=== PATIENT | male | born 1950 | race African-American/Black ===

== ENCOUNTER → 2019-09-28 | Outpatient (CLI) | payer OTHER ==
[~2019-09-28] VITALS: Ht 182.9 cm; Wt 117.9 kg
[~2019-09-28] MED LIST: ACETAMINOPHEN325 M1 PO; ADULT LOW DOSE81 MG PO; ALBUTEROL INH INH; ALDACTONE25 MG PO; ALLEGRA ALLERG180 MG PO; APAP650 RECTAL; AVALIDE 300-121 EACH PO; AVAPRO300 MG PO; CENTRUM SILVER1 EAC4 PO; CO Q-10300 MG PO; COUMADIN 1MG TAB1 M1 PO; CVS GLUCOSAMIN PO; DEMADEX20 MG PO; ENOXAPARIN30 MG/0.3 SUBQ; FLEXERIL PO; FOLBIC RF TABL1 EACH PO; GLUCOSAMINE &1 EAC1 PO; HYDROCHLOROTHIA25 M2 PO; HYDROCODON-ACE1 EAC5 PO; JANTOVEN7.5 MG PO; KLOR-CON20 ME1 PO; MULTIVITAMINS PO; NIASPAN 500 MG500 M1 PO; PACERONE 200 M200 M1 PO; PERCOCET 5-3251 EACH PO; POTASSIUM20 PO; PULMICORT FLE180 MCG INH; SINGULAIR 10 MG10 MG PO; SPIRIVA INH; SYMBICORT160 MCG/4. INH; TAMSULOSIN HCL0.4 MG PO; TOPROL XL25 MG PO; VERAPAMIL ER240 M1 PO; XARELTO10 M1 PO; XARELTO20 MG PO
[2019-09-28 07:59] VITALS: BP 134/86
[2019-09-28 09:15] VITALS: BP 148/95
[2019-09-28 09:45] VITALS: BP 123/89
[2019-09-28 09:56] VITALS: BP 137/86
--- NOTE | 2019-09-28 09:57 | TEE ---
[facility] [place] [address] TRANSESOPHAGEAL ECHOCARDIOGRAM Name: AASHISH OSMAN Room #: REG CAYETANO Narayan#: [id number] Admission: 09/28/19 Attend Phys: Efrain Painter MD, Discharge: Date of : 48 Report #: [id number] THIS REPORT FOR: cc: Christiana Coleman MD, Karla L. MD Lundgren,Efrain Ashton MD [facility] ~ APPROVED REPORT Study performed: 09/28/2019 08:44:11 EXAM: Transesophageal Echocardiogram with Doppler Patient Location: Out-Patient Room #: [facility] Status: routine BSA: 2.38 HR: 100 bpm BP: 129/90 mmHg Rhythm: Atrial Fibrillation Other Information Study Quality: Good Indications Atrial Fibrillation Echo Enhancing Agent Indication: Rule out Shunt Agent(s) / Amount(s) Used: Agitated Saline 7 cc Procedure After obtaining informed consent, patient underwent transesophageal echo in the [employer]. Type of Sedation : Conscious Sedation Sedation was achieved intravenously with: Versed (3 mg) Fentanyl (100 mcg) Transesophageal probe was inserted and advanced into esophagus without difficulty by Efrain Painter MD. Echo enhancement indication: R/O Septal defect. Echo enhancement agent administered: Agitated Saline The ODALIS was performed without complications. Throughout the procedure, the blood pressure, pulse oximetry, cardiac rhythm, and rate were monitored. The patient tolerated the procedure without adverse effects. Recovery from conscious sedation was uneventful and vital signs were [facility] [address] [place] [address] TRANSESOPHAGEAL ECHOCARDIOGRAM Name: AASHISH OSMAN Room #: REG [facility]#: [id number] Admission: 09/28/19 Attend Phys: Efrain Painter, Discharge: Date of : 48 Report #: [id number]. Left Ventricle The left ventricle is normal size. There is normal LV segmental wall motion. There is normal left ventricular wall thickness. The left ventricular systolic function is normal. The left ventricular ejection fraction is within the normal range. LVEF is 55-60%. Right Ventricle The right ventricle is normal size. The right ventricular systolic function is normal. Atria Left atrium is dilated. No thrombus is visualized in the left atrium or appendage. Small amount of [id number] shunting consistent with patent foramen ovale. Right atrium is dilated. Aortic Valve The aortic valve is normal in structure. No aortic regurgitation is present. There is no aortic valvular stenosis. Mitral Valve The mitral valve is normal in structure. Mild mitral regurgitation. No evidence of mitral valve stenosis. Tricuspid Valve The tricuspid valve is normal in structure. Mild tricuspid regurgitation. Pulmonic Valve The pulmonary valve is normal in structure. There is no pulmonic valvular regurgitation. Great Vessels The aortic root is normal in size. The ascending aorta is normal in size. Mild atherosclerotic plaquing IVC is normal in size and collapses >50% with inspiration. Pericardium There is no pericardial effusion. <Conclusion> The left ventricular systolic function is normal. There is normal LV segmental wall motion. LVEF is 55-60%. Both atria are dilated. No thrombus is visualized in the left atrium [facility] [address] [place] [address] TRANSESOPHAGEAL ECHOCARDIOGRAM Name: JACQUIAASHISH Room #: REG CL [facility]#: [id number] Admission: 09/28/19 Attend Phys: Efrain Painter, Discharge: Date of : 48 Report #: [id number] or appendage. Small amount of gwlae-bh-aawc shunting consistent with patent foramen ovale. The aortic valve is normal in structure. No aortic regurgitation or stenosis. The mitral valve is normal in structure. Mild mitral regurgitation. There is no pericardial effusion. <ELECTRONICALLY SIGNED> By: Efrain Painter MD, [facility] 09/28/1957 5 5 Efrain Painter MD, [facility] /INF
== END | disposition home or self-care (01) ==
LOC: CATH 06:24
DX: I48.91 Unspecified atrial fibrillation (principal); I34.9 Nonrheumatic mitral valve disorder, unspecified; I10 Essential (primary) hypertension; J45.909 Unspecified asthma, uncomplicated; G47.30 Sleep apnea, unspecified; Z98.890 Other specified postprocedural states; Z79.899 Other long term (current) drug therapy; Z79.01 Long term (current) use of anticoagulants; Z87.891 Personal history of nicotine dependence; Z88.8 Allergy status to other drugs, medicaments and biological substances

== ENCOUNTER → 2019-10-09 | Outpatient (CLI) | payer OTHER ==
[2019-10-09 08:24] LABS: HEMOGLOBIN 15.8 gm/dL (14.0-18.0); MCH 25.3 pg (26.0-34.0); MCHC 31.6 g/dL (28.0-37.0); MCV 79.9 fL (80.0-100.0); RBC 6.25 mil/uL (4.50-6.00); WBC 8.6 thou/uL (4.0-11.0)
[2019-10-09 08:41] LABS: ALBUMIN 3.3 g/dL (3.4-5.0); CALCIUM 8.8 mg/dL (8.5-10.1); POTASSIUM 4.2 mmol/L (3.5-5.1); TOTAL PROTEIN 7.1 g/dL (6.4-8.2)
== END ==
LOC: CAT 07:50
PROVIDERS: Internal Medicine Cardiovascular Disease
DX: I48.91 Unspecified atrial fibrillation (principal); I25.10 Atherosclerotic heart disease of native coronary artery without angina pectoris

== ENCOUNTER 2019-10-19 07:10 | Observation (INO) | payer OTHER ==
[~2019-10-19] VITALS: Ht 180.3 cm; Wt 121.6 kg
[2019-10-19] VITALS (13 sets, daily range): BP systolic 124–150; BP diastolic 74–110
[2019-10-19 07:20] LABS: ABSOLUTE NEUTROPHILS 2.8 thou/uL (1.4-8.2); BASOPHILS 0.9 % (0.0-2.0); EOSINOPHILS 1.6 % (0.0-3.0); HEMATOCRIT 46.5 % (42.0-52.0); HEMOGLOBIN 14.6 gm/dL (14.0-18.0); LYMPHOCYTES 43.1 % (24.0-44.0); MCH 25.2 pg (26.0-34.0); MCHC 31.4 g/dL (28.0-37.0); MCV 80.2 fL (80.0-100.0); PLATELET COUNT 271 thou/uL (150-400); POLYS 45.4 % (36.0-66.0); RDW 15.7 % (10.5-14.5); WBC 6.2 thou/uL (4.0-11.0)
[2019-10-19 07:28] LABS: INR 1.1; PROTIME 10.9 Seconds (9.3-11.4)
[2019-10-19 07:30] LABS: CALCIUM 8.8 mg/dL (8.5-10.1); POTASSIUM 3.6 mmol/L (3.5-5.1)
[2019-10-19 07:35] LABS: ALBUMIN 3.2 g/dL (3.4-5.0); TOTAL BILIRUBIN 1.1 mg/dL (<0.1-1.0); TOTAL PROTEIN 7.2 g/dL (6.4-8.2)
[2019-10-19] MEDS ORDERED: LIPITOR10 MG PO (07:38)
[2019-10-19] MEDS ORDERED: FLONASE 0.05%50 MCG NARES (07:38)
[2019-10-19] MEDS ORDERED: EPLERENONE25 MG PO (07:39)
--- NOTE | 2019-10-19 16:14 | NUR ---
PATIENT ARRIVED FROM CATHLAB, DROWSY, ALERT AND ORIENTED X4 AND OPEN HIS EYES WHEN TALK TO. BP SLIGHTLY ELEVATED AND TREDING DOWN, SEE POST CARDIAC CATH FLOW SHEET. RT GRION SITE WITH SMALL DIME SIZED BLOOD ON DRESSING, PATIENT INSTRUCTED TO HOLD PRESSURE WHEN COUGHING, AND WILL CONTINUE TO MONITOR THE SITE.
[2019-10-20 00:17] VITALS: BP 115/68
[2019-10-20 04:26] VITALS: BP 128/83
--- NOTE | 2019-10-20 06:44 | NUR ---
PATIENT OFF BEDREST AT SHIFT CHANGE.PATIENT DANGLE AT BEDSIDE.ROSE OUT AND VOIDED.COMPLAIN OF PAIN.HYDROCODONE GIVEN X 2.VERBALIZED RELIEF.MONITOR SHOWS SR.POC CONTINUED.
[2019-10-20] MEDS ORDERED: MULTAQ 400 MG400 MG PO (07:57)
[2019-10-20 08:45] VITALS: BP 152/83
[2019-10-20 12:08] VITALS: BP 131/77
[2019-10-20 14:46] VITALS: BP 131/77
--- NOTE | 2019-10-20 15:53 | NUR ---
ASSUMED CARE AT SHIFT CHANGE, ASSESSMENT DOCUMENTED, AND VSS. RT GRION SITE INTACT, AND SOFT. DISCAHRGE AND MEDICATION INSTRUCTIONS GIVEN TO PATIENT.
--- NOTE | 2019-10-22 08:32 | P ---
[facility] [place] [address] PROCEDURE REPORT Name: AASHISH OSMAN Room #: 208-P [facility] Delmis Narayan#: [id number] Admission: 10/19/19 Attend Phys: Jeremy Correia MD Discharge: 10/20/19 Date of : 48 Report #: [id number] THIS REPORT FOR: cc: Christiana Coleman MD,Jeremy San MD, MD ~ CC: Christiana Correia ATRIAL FIBRILLATION PREOPERATIVE DIAGNOSIS: Atrial fibrillation. POSTOPERATIVE DIAGNOSES: Atrial fibrillation and atrial flutter. PROCEDURES PERFORMED: 1. Atrial fibrillation ablation, CPT code 87251. 2. 3D mapping, CPT code 84279. 3. Intracardiac echo, CPT code 83359. 4. Focal ablation, CPT code 43333. 5. Second pathway ablation, CPT code 41916. HISTORY: The patient is a 69-year-old male with history of recurrent atrial fibrillation despite antiarrhythmic drug therapy and he is here for ablation. ANESTHESIA: The patient underwent general anesthesia with no anesthesia related complications. DESCRIPTION OF PROCEDURE: The patient underwent informed consent. We discussed the details of the procedure including the risks, which include but not limited to bleeding, vascular damage, cardiac perforation, stroke and [place]. He understood these risks and is willing to proceed. The patient was brought to EP laboratory in fasting and sedated state, prepped and draped in a sterile fashion. At baseline, the patient was in AFib with a ventricular cycle length of 580 milliseconds, QRS duration 76 milliseconds, QT interval 355 milliseconds. Next, I injected lidocaine at the right groin region, obtained access to the right femoral vein x 3, placing an 8, 9 and 7-Pakistani short sheath using the modified Seldinger technique. Next, under fluoroscopy, I placed a Decapolar catheter into the coronary sinus with ease and using a Lasso catheter, I created a 3D geometry of the right atrium. Next, the patient was systemically heparinized and a transseptal was performed using an SL1 sheath and a Shirley needle. Intracardiac ultrasound was also utilized for 3D mapping and left atrial visualization. The transseptal was straightforward and I exchanged the SL1 sheath for the cryo sheath. Once I had the cryo sheath in the left atrium, I created a detailed 3D voltage map of the left atrium and there was evidence of 2 left and 2 right pulmonary veins. The 2 left veins were [facility] [address] [place] [address] PROCEDURE REPORT Name: AASHISH OSMAN Room #: 208-P EDELMIRA Narayan#: [id number] Admission: 10/19/19 Attend Phys: Jeremy Correia MD Discharge: 10/20/19 Date of : 48 Report #: [id number] in close proximity, but did not result in a left common ostium. Next, I exchanged the Lasso catheter for the cryoballoon. The CT scan was merged with the [employer] images and the 3D map we had created. Next, I started by isolating the left superior pulmonary vein. I performed an initial 150-second freeze and the vein isolated within 53 seconds. I came off due to cold temperatures. The vein reconnected during the thaw phase. I performed a second freeze of 40 seconds duration, which resulted in isolation of the vein within 60 seconds. I performed a third freeze of 140 seconds duration. I then turned my attention to the left inferior pulmonary vein. I performed a 4-minute followed by a 3-minute freeze. The vein isolated during the first freeze within 26 seconds. The right superior pulmonary vein underwent a 70-second freeze, which resulted in isolation of the vein at 15 seconds. I came off early due to cold temps. The vein did reconnect. I then performed a second freeze of 4 minutes' duration, which resulted in isolation within 46 seconds. Next, I moved to the right inferior pulmonary vein. I performed an initial 60 seconds followed by 70 second followed by 75 second freeze. I came off due to cold temps of -50 degrees. I then performed more of an ostial freeze of 4 minutes' duration. After this final freeze, the vein appeared to be isolated; however, I suspect it was isolated during the first 3 freezes as well, but I could not see a pulmonary vein electrograms. While I was freezing the right-sided veins, there was never any phrenic nerve compromise and I paced the phrenic nerve with the Decapolar catheter placed in the subclavian vessel. Next, I performed a roofline to isolate the posterior wall. I performed 3 freezes anchored from the left superior pulmonary vein and 3 freezes performed anchored from the right superior pulmonary vein. After this, I performed a repeat voltage map and this showed that we had isolated the 4 pulmonary veins and the roof region of the left atrium. At this point, I cardioverted the patient. The first cardioversion at 200 joules resulted in continued atrial fibrillation, the second cardioversion resulted in atrial flutter, then degenerated to atrial fibrillation and then the third cardioversion at 200 joules again finally resulted in normal sinus rhythm. ATRIAL FLUTTER ABLATION: Next, as the left atrium appeared to be nicely isolated, we decided to perform a right-sided atrial flutter ablation. I placed a ramp sheath and an 8 mm ablation catheter at 6 o'clock along the cavotricuspid isthmus. Pre-ablation, the transisthmus conduction time was 70 milliseconds. We performed ablation at 70 pan and 60 degrees. There was primarily signals noted at the proximal third of the isthmus and then the posterior two-thirds of the isthmus essentially had no significant signals. There was a slight pouch noted and I ablated here as well. I performed 2 ablation lines and then checked and post-ablation, the transisthmus conduction time was now 140 milliseconds with evidence of bidirectional block. Post-ablation, the patient remained in sinus rhythm. Using intracardiac ultrasound, I verified that there was no pericardial effusion. The patient received systemic protamine and once ACT was within acceptable range, catheters and sheaths were pulled and hemostasis obtained. The patient awoke neurologically and hemodynamically intact. No complications and no significant bleeding. [address] [address] PROCEDURE REPORT Name: AASHISH OSMAN Room #: 208-P [facility] Delmis Narayan#: [id number] Admission: 10/19/19 Attend Phys: Jeremy Correia MD Discharge: 10/20/19 Date of : 48 Report #: [id number] CONCLUSIONS: 1. Successful AFib ablation with isolation of the 4 pulmonary veins. 2. Successful roof line creation. 3. Successful atrial flutter ablation with evidence of bidirectional block. <ELECTRONICALLY SIGNED> By: Jeremy Correia MD 10/22/19 0832 0931 1021 Jeremy Correia MD /mango
== END 2019-10-20 16:58 | disposition home or self-care (01) ==
LOC: CATH 07:10 → 2N 14:21 → CATH 15:20 → ENTRNSPT 10-20 14:52 → EDTRNSPTSTS 10-20 14:55 → EDTRNSPT 10-20 16:43 → 2N 10-20 16:58
PROVIDERS: ADMIT Internal Medicine Cardiovascular Disease
DX: I48.0 Paroxysmal atrial fibrillation (principal); I48.92 Unspecified atrial flutter
CPT/HCPCS: 10797; 62110; 62900; 65020; 65040; 70005

== ENCOUNTER → 2019-12-15 | Outpatient (CLI) | payer OTHER ==
[~2019-12-15] MED LIST changes: +EPLERENONE25 MG PO; +FLONASE 0.05%50 MCG NARES; +LIPITOR10 MG PO; +MULTAQ 400 MG400 MG PO
== END ==
LOC: SJCVC 13:00
DX: I48.0 Paroxysmal atrial fibrillation (principal); I11.0 Hypertensive heart disease with heart failure; I50.42 Chronic combined systolic (congestive) and diastolic (congestive) heart failure; E78.00 Pure hypercholesterolemia, unspecified; D68.59 Other primary thrombophilia; Q21.1 Atrial septal defect; G47.30 Sleep apnea, unspecified; I38 Endocarditis, valve unspecified; J45.909 Unspecified asthma, uncomplicated; M19.90 Unspecified osteoarthritis, unspecified site; Z82.49 Family history of ischemic heart disease and other diseases of the circulatory system; Z79.899 Other long term (current) drug therapy; Z86.718 Personal history of other venous thrombosis and embolism; Z87.891 Personal history of nicotine dependence

== ENCOUNTER → 2020-01-19 | Outpatient (CLI) | payer OTHER | LOC: SJCVC 14:55 | PROVIDERS: ATTEND Internal Medicine Cardiovascular Disease | DX: I48.0 Paroxysmal atrial fibrillation (principal); I48.3 Typical atrial flutter ==

== ENCOUNTER → 2020-04-20 | Outpatient (CLI) | payer OTHER | LOC: SJCVC 14:40 | PROVIDERS: ATTEND Internal Medicine Cardiovascular Disease | DX: I48.0 Paroxysmal atrial fibrillation (principal); I48.3 Typical atrial flutter; I10 Essential (primary) hypertension; G47.33 Obstructive sleep apnea (adult) (pediatric); J45.20 Mild intermittent asthma, uncomplicated; Z79.899 Other long term (current) drug therapy ==

== ENCOUNTER → 2020-07-25 | Outpatient (CLI) | payer OTHER | LOC: SJCVCIMAG 10:26 | PROVIDERS: ATTEND Internal Medicine Cardiovascular Disease | DX: I07.1 Rheumatic tricuspid insufficiency (principal); I11.0 Hypertensive heart disease with heart failure; I50.9 Heart failure, unspecified; I48.0 Paroxysmal atrial fibrillation; E78.00 Pure hypercholesterolemia, unspecified; G47.30 Sleep apnea, unspecified; Z98.890 Other specified postprocedural states; Z86.79 Personal history of other diseases of the circulatory system; Z79.899 Other long term (current) drug therapy; Z82.49 Family history of ischemic heart disease and other diseases of the circulatory system; Z87.891 Personal history of nicotine dependence ==

== ENCOUNTER → 2020-09-05 | Outpatient (CLI) | payer OTHER | LOC: LAB 08:52 | PROVIDERS: ATTEND Anesthesiology | DX: Z01.812 Encounter for preprocedural laboratory examination (principal); Z20.822 Contact with and (suspected) exposure to COVID-19 ==

== ENCOUNTER → 2020-10-18 | Outpatient (CLI) | payer OTHER | LOC: SJCVC 14:40 | PROVIDERS: ATTEND Internal Medicine Cardiovascular Disease | DX: I48.0 Paroxysmal atrial fibrillation (principal); I10 Essential (primary) hypertension; E78.00 Pure hypercholesterolemia, unspecified; G47.33 Obstructive sleep apnea (adult) (pediatric); Z79.899 Other long term (current) drug therapy; Z82.49 Family history of ischemic heart disease and other diseases of the circulatory system; Z87.891 Personal history of nicotine dependence ==

== ENCOUNTER → 2020-10-19 | Outpatient (CLI) | payer OTHER | LOC: SJCVC 14:47 | PROVIDERS: ATTEND Internal Medicine Cardiovascular Disease | DX: I48.91 Unspecified atrial fibrillation (principal); I10 Essential (primary) hypertension; E78.00 Pure hypercholesterolemia, unspecified; I08.1 Rheumatic disorders of both mitral and tricuspid valves; D68.59 Other primary thrombophilia; Z98.890 Other specified postprocedural states; Z86.79 Personal history of other diseases of the circulatory system; Z82.49 Family history of ischemic heart disease and other diseases of the circulatory system; Z87.891 Personal history of nicotine dependence; Z79.84 Long term (current) use of oral hypoglycemic drugs; Z79.899 Other long term (current) drug therapy ==